=== PATIENT | female | born 1965 | race Caucasian/White ===

== ENCOUNTER 2019-09-28 16:37 | Emergency (ER) | payer OTHER ==
[2019-09-28 16:46] VITALS: BP 119/80; PULSE 82; TEMP 97.3; BMI 18.2
--- NOTE | 2019-09-28 17:31 | PDOC ---
History of Present Illness - General Chief Complaint: Chest Pain Stated Complaint: CHEST PAIN History Source: Patient - History of Present Illness Initial Comments: 09/28/19 17:22 54 yo F PMH of gastroparesis, Carmen's esophagus, questionable COPD presents to ED from urgent care for chest tightness and shortness of breath. pt states she has had these symptoms in the past and was told she has an allergy to mold. She was given Advair and albuterol for these respiratory problems. she states her symptoms resolved until yesterday. She states she currently feels chest pressure worse when she breathes. she states it did not improve with her inhalers. she also endorses weakness, dizziness, and fevers. denies cough, hemoptysis. 09/28/19 18:14 Past History - Past Medical History Allergies/Adverse Reactions: Allergies Allergy/AdvReac Type Severity Reaction Status Date / Time phenazopyridine Allergy Verified 09/28/19 16:42 [From Pyridium] Home Medications: Ambulatory Orders NK [No Known Home Medication] 11/04/15 COPD: No - Immunization History Immunization Up to Date: Yes - Psycho Social/Smoking Cessation Hx Smoking History: Unknown if ever smoked Have you smoked in the past 12 months: No Number of Cigarettes Smoked Daily: 10 Hx Alcohol Use: No Drug/Substance Use Hx: No Review of Systems - Review of Systems Able to Perform ROS?: Yes Constitutional: Yes: Chills, Fever, Weakness Respiratory: Yes: Orthopnea, Shortness of Breath. No: Cough, Wheezing, Productive cough Cardiac (ROS): Yes: Lightheadedness, Chest Tightness. No: Chest Pain, Irregular Heart Rate, Palpitations ABD/GI: No: Diarrhea, Nausea, Vomiting : No: Dysuria Neurological: Yes: Weakness, Dizziness. No: Headache *Physical Exam - Vital Signs Last Vital Signs Temp Pulse Resp BP Pulse Ox 97.3 F L 82 16 119/80 100 09/28/19 16:40 09/28/19 16:40 09/28/19 16:40 09/28/19 16:40 09/28/19 16:40 - Physical Exam General Appearance: Yes: Appropriately Dressed, Thin HEENT: positive: EOMI, MAGDAL[place], Normal Voice Respiratory/Chest: positive: Lungs Clear, Decreased Breath Sounds. negative: Accessory Muscle Use, Crackles (at bases ), Wheezing Cardiovascular: positive: Regular Rhythm, Regular Rate, S1, S2. negative: JVD Gastrointestinal/Abdominal: positive: Normal Bowel Sounds, Soft. negative: Tender, Distended, Guarding, Rebound, Tenderness, Hepatomegaly, Spleenomegaly Musculoskeletal: negative: CVA Tenderness Integumentary: positive: Normal Color, Dry, Cold Neurologic: positive: Fully Oriented ED Treatment Course - LABORATORY CBC & Chemistry Diagram: 09/28/19 18:00 09/28/19 18:00 - RADIOLOGY Radiology Studies Ordered: Category Date Time Status CHEST X-RAY PORTABLE* [RAD] Stat Radiology 09/28/19 17:16 Ordered Medical Decision Making - Medical Decision Making 09/28/19 18:20 54 yo presenting with sob and chest tightness/ pressure -EKG: NSR, inverted T waves V1,V2, RBBB. will obtain cardiac profile . -CXR -CBC, CMP -pt has questionable COPD from previous records from PMD. will give duonebs -pt had UTI and day 4/5 of Abx 09/28/19 19:43 -cmp reviewed. trop neg. -pending DDimer 09/28/19 20:46 DDimer neg. will dc home Discharge - Discharge Information Problems reviewed: Yes Clinical Impression/Diagnosis: Allergy Qualifiers: Encounter type: subsequent encounter Qualified Code(s): T78.40XD - Allergy, unspecified, subsequent encounter Condition: Good Disposition: HOME - Admission No - Follow up/Referral - Patient Discharge Instructions Patient Printed Discharge Instructions: DI for Allergy Testing Additional Instructions: You came into the hospital for chest tightness. We did some blood tests and a Chest Xray which were in normal limits. Your cardiac blood values were also in normal ranges. Please continue your home medications as prescribed. Please continue using your inhalers as needed. Please follow up with your primary care physician within one week to review your improvement. 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 If you have any new, worsening , or concerning symptoms please return to the ED. - Post Discharge Activity
[2019-09-28] MEDS ORDERED: ALBUTEROL SO4 2.5/IPRATROPIUM 0.5 INH SOL 3 ML VIAL.NEB. NEB ONE ×2 (17:50→18:18)
[2019-09-28] MEDS ORDERED: LEVALBUTEROL HCL 0.63 MG/3 ML VIAL.NEB. IH PRN (18:24)
[2019-09-28 18:28] LABS: BASO % 0.8 % (0-2.0); EOS % 1.5 % (0-4.5); HEMATOCRIT 42.3 % (32.4-45.2); HEMOGLOBIN 14.1 GM/dL (10.7-15.3); LYMPH % 35.2 % (8-40); MCH 30.1 pg (25.7-33.7); MCHC 33.4 g/dl (32.0-36.0); MEAN PLT VOLUME 8.1 fl (7.5-11.1); MONO % 7.1 % (3.8-10.2); NEUT % 55.4 % (42.8-82.8); PLATELET COUNT 333 K/MM3 (134-434); RBC 4.69 M/mm3 (3.60-5.2); RDW 14.2 % (11.6-15.6); VENOUS PC02 42.3 mmHg (38-52); VENOUS PH 7.38 (7.31-7.41); VENOUS PO2 86.5 mmHg (28-48); WHITE BLOOD COUNT 5.1 K/mm3 (4.0-10.0)
[2019-09-28 18:36] LABS: EPI CELLS 0.9 /HPF (0-5/HPF); HYALINE CASTS 1 /lpf (0-8); PH,URINE 7.5 (5.0-8.0); URINE APPEARANCE CLEAR; URINE BACTERIA 1.2 /hpf (NEGATIVE); URINE BILIRUBIN NEGATIVE (NEGATIVE); URINE COLOR YELLOW; URINE GLUCOSE (UA) NEGATIVE (NEGATIVE); URINE KETONE NEGATIVE (NEGATIVE); URINE LEUK ESTERASE TRACE (NEGATIVE); URINE NITRITE NEGATIVE (NEGATIVE); URINE PROTEIN NEGATIVE (NEGATIVE); URINE RBC 4 /hpf (0-4); URINE UROBILINOGEN 0.2 mg/dL (0.2-1.0); URINE WBC 1 /hpf (0-5)
[2019-09-28 19:05] LABS: ALBUMIN 4.3 g/dl (3.4-5.0); BILIRUBIN,TOTAL 0.4 mg/dL (0.2-1); BLOOD UREA NITROGEN 10.8 mg/dL (7-18); CALCIUM 9.7 mg/dL (8.5-10.1); CREATININE 0.8 mg/dL (0.55-1.3); MAGNESIUM 2.4 mg/dL (1.8-2.4); POTASSIUM 3.6 mmol/L (3.5-5.1); TOT PROT 7.6 g/dl (6.4-8.2)
--- NOTE | 2019-09-28 20:08 | PDOC ---
Attending Attestation - Resident Resident Name: Yael Rain - ED Attending Attestation I have performed the following: I have examined & evaluated the patient, The case was reviewed & discussed with the resident, I agree w/resident's findings & plan, Exceptions are as noted - HPI HPI: 09/28/19 18:59 MYoshi Cruz is a 54 yo F h/o gastroparesis, Carmen's esophagus, questionable COPD presents to ED from urgent care for chest tightness and shortness of breath. Patient's most pertinent history is that she was recently diagnosed as having an allergy to mold, her home underwent an extensive remediation process, and she is currently improving. After being seen by an v groove cutter it turns out she also has an allergy to dust. While at work, she was helping to clean out a very kina room yesterday which triggered her symptoms She noted wheezing, cough, shortness of breath. She was given Advair and albuterol for these respiratory problems. Shortness of breath actually improved however today she noted chest pressure which is worse when she breathes No recent travel No prior PE DVT No mobilization No known cancer diagnosis (+) weakness, dizziness, and fevers. Patient denies hemoptysis, cough Patient denies exertional dyspnea or increased fatigue 09/28/19 18:14 09/28/19 20:48 - Physicial Exam PE: 09/28/19 20:08 GENERAL: The patient is in no acute distress. ENT: Ears normal, nares patent, oropharynx clear without exudates. Moist mucous membranes. NECK: Normal range of motion, supple LUNGS: Breath sounds equal, clear to auscultation bilaterally. No wheezes, and no crackles. HEART:Regular rate and rhythm, normal S1 and S2 without murmur, rub or gallop. ABDOMEN: Soft, nontender, normoactive bowel sounds. EXTREMITIES: Normal range of motion, no edema. NEUROLOGICAL: Cranial nerves II through XII grossly intact. Normal speech. No focal neurological deficits. SKIN: Warm, Dry, normal turgor, no rashes or lesions noted. - Medical Decision Making 09/28/19 20:08 54-year-old female presenting to the emergency department from urgent care due to pleuritic chest pain Patient is low risk [place] Unable to do PERC score given age We will do basic lab We will do EKG We will do d-dimer 09/28/19 20:09 Laboratory Tests 09/28/19 09/28/19 09/28/19 18:00 18:00 18:00 WBC 5.1 Hgb 14.1 Hct 42.3 Plt Count 333 D BUN 10.8 Creatinine 0.8 Creatine Kinase 98 Troponin I < 0.02 Urine Blood Urine Nitrite Ur Leukocyte Esterase 09/28/19 18:00 WBC Hgb Hct Plt Count BUN Creatinine Creatine Kinase Troponin I Urine Blood Negative Urine Nitrite Negative Ur Leukocyte Esterase Trace 09/28/19 20:41 Laboratory Tests 09/28/19 19:45 D-Dimer < 215 We will plan to discharge home Symptoms are likely related to patient's reaction to the kina room she was in We will asked patient to follow-up with her v groove cutter and primary care physician
--- NOTE | 2019-09-29 13:48 | EKG ---
Test Reason : Blood Pressure : / mmHG Vent. 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
== END 2019-09-28 21:03 | disposition home or self-care (01) ==
LOC: JER 16:37
PROC: 3E0F7GC Introduction of Other Therapeutic Substance into Respiratory Tract, Via Natural or Artificial Opening (ICD-10-PCS; principal; 2019-09-28)
DX: J30.89 Other allergic rhinitis (principal); Z87.19 Personal history of other diseases of the digestive system; Z88.8 Allergy status to other drugs, medicaments and biological substances
CPT/HCPCS: 36415; 71045-TC-FY; 80053; 81003; 82550; 82803; 83735; 84100; 84443; 84484; 85025; 85379; 87086; 93005; 93010; 99285-25